=== PATIENT | male | born 1990 | race Caucasian/White ===

== ENCOUNTER 2018-03-15 20:35 | Emergency (ER) | payer OTHER ==
[2018-03-15] MEDS ORDERED: Lidocaine 1% 20 ML MDV ONE (20:45)
[2018-03-15] MEDS ORDERED: Adacel (T-DAP) 0.5 ML SYRINGE ONE (21:05)
[2018-03-15] MEDS ORDERED: Bacitracin Zinc 1 Packet ONE (21:05)
== END 2018-03-15 21:30 | disposition home or self-care (01) ==
LOC: MADERS 20:35
DX: S61.412A Laceration without foreign body of left hand, initial encounter (principal); W25.XXXA Contact with sharp glass, initial encounter
CPT/HCPCS: 12001; 90471; 90715; J2001